=== PATIENT | male | born 1990 | race Caucasian/White ===

== ENCOUNTER 2024-09-05 09:21 | Emergency (ER) | payer OTHER ==
[~2024-09-05] VITALS: Ht 175.3 cm; Wt 63.6 kg
[2024-09-05 09:26] VITALS: TEMP 98
[2024-09-05] MEDS: fentaNYL/PF 50MCG/1 ML 2ML syringe IV ONE (10:19)
[2024-09-05] MEDS: ondansetron/PF 4mg/2ml inj IV ONE (10:19)
[2024-09-05] MEDS: normal saline 1000ML IV soln IVB ONE (10:24)
[2024-09-05 10:34] LABS: BASOPHILS % (AUTO) 0.3 % (0-1); EOSINOPHILS % (AUTO) 0.3 % (0-6); HEMATOCRIT 47.1 % (42.0-52.0); HEMOGLOBIN 16.1 g/dl (14.0-17.9); LYMPHOCYTES % (AUTO) 15.5 % (21-51); MEAN CORPUSCULAR HEMOGLOBIN 29.8 PG (27.0-31.0); MEAN CORPUSCULAR HGB CONC 34.2 g/dL (33.0-36.5); MEAN CORPUSCULAR VOLUME 87.2 FL (78-98); MEAN PLATELET VOLUME 7.6 FL (7.4-10.4); MONOCYTES % (AUTO) 7.6 % (2-12); NEUTROPHILS # (AUTO) 9.9 X10'3 (1.8-7.7); NEUTROPHILS % (AUTO) 76.3 % (42-75); PLATELET COUNT 275 X10'3 (140-440); RED CELL DISTRIBUTION WIDTH 13.5 % (11.5-14.5)
[2024-09-05 10:47] VITALS: BP 120/86; PULSE 110; RESP 16; O2SAT 97
[2024-09-05 10:58] LABS: ALANINE AMINOTRANSFERASE 49 U/L (12-78); ALBUMIN 4.2 G/DL (3.4-5.0); ALBUMIN/GLOBULIN RATIO 1.2 (1.1-1.5); ALKALINE PHOSPHATASE 84 IU/L (46-116); ASPARTATE AMINO TRANSFERASE 17 U/L (10-37); BILIRUBIN,TOTAL 0.8 MG/DL (0.1-1.0); BLOOD UREA NITROGEN 12 MG/DL (7-18); BUN/CREATININE RATIO 16.9 (10.0-20.0); CALCIUM 9.3 MG/DL (8.5-10.1); CREATININE 0.71 MG/DL (0.60-1.10); GLUCOSE 85 MG/DL (70-104); LIPASE 20 U/L (16-77); POTASSIUM 4.2 MMOL/L (3.5-5.1); SODIUM 143 MMOL/L (135-145); TOTAL PROTEIN 7.6 G/DL (6.4-8.2); eCRCL 136 ML/MIN; eGFR > 90 ML/MIN
[2024-09-05 11:01] LABS: ANION GAP 10 (8-16); CHLORIDE 104 MMOL/L (99-107)
[2024-09-05] MEDS ORDERED: magnesium citrate 296ml oral solution PO ONE (11:05)
== END 2024-09-05 13:18 ==
LOC: ER 09:21 → EEVIPCON 09:21 → ER 13:18
DX: K29.00 Acute gastritis without bleeding (principal); K59.00 Constipation, unspecified; Z88.0 Allergy status to penicillin
CPT/HCPCS: 36415; 74176; 80053; 83605; 83690; 85025; 93005; 96361; 96374; 96375; 99285; J2405; J3010; J7030